=== PATIENT | female | born 1930 | race Caucasian/White ===

== ENCOUNTER 2017-10-31 20:10 | Emergency (ER) | payer MEDICARE, BC ==
[~2017-10-31] VITALS: Ht 149.9 cm; Wt 46.3 kg
[~2017-10-31 20:10] MED LIST: ADVA250A INH; ASPI325T PO; B-12500T3 PO; FLON0.053; KLOR20TA6 PO; LASI20TA PO; LEVO.1 PO; MAGN400T20 PO; SPIR25 PO; SPIRCAP INH; TAMO20TA4 PO; VALA500 PO; Z.0.OXYGEN INH; ZOCO40TA PO
[2017-10-31 20:14] VITALS: BP 113/57; PULSE 97; RESP 16; TEMP 98; O2SAT 93
--- NOTE | 2017-10-31 20:33 | PD ---
HPI Chief Complaint: Fall Time Seen by Provider: 20:27 Travel History International Travel<30 days: No Contact w/Intl Traveler<30days: No Traveled to known affect area: No History of Present Illness HPI The patient was seen and examined in the presence of the nurse. This patient came for evaluation of injuries suffered in a fall. Duration 3 hours. She lost her balance and fell onto her right side. She struck her right elbow primarily and also grazed her right hip. She does take a daily aspirin. She bruises very easily. She has been ambulatory since the fall. She does not have any hip pain. The severity of her elbow pain is mild but she had severe bruising and swelling there. No alleviating factors. No exacerbating factors. PFSH Past Medical History Asthma: No Blood Disorders: No Heart Rhythm Problems: Yes (ATRIAL FIBRILLATION) Cancer: Yes (RIGHT BREAST) Cardiovascular Problems: No Chemotherapy: No COPD: Yes Diabetes: No Endocrine: No Genitourinary: Yes (FREQUENCY/ [employer].) Hepatitis: No Hiatal Hernia: No Hypertension: Yes Immune Disorder: No Musculoskeletal: No Neurologic: No Psychiatric: No Reproductive: No Respiratory: Yes (COPD) Immunizations Current: Yes Radiation Therapy: No Sleep Apnea: No Thyroid Disease: Yes ?: Not Past Surgical History Abdominal Surgery: Yes (APPENDECTOMY) AICD: No Appendectomy: Yes Arteriovenous Shunt: No Cardiac Surgery: No Ear Surgery: No Endocrine Surgery: No Eye Surgery: No Genitourinary Surgery: No Gynecologic Surgery: No Insulin Pump: No Joint Replacement: No Oral Surgery: No Pacemaker: No Thoracic Surgery: Yes (right breast lumpectomy) Social History Alcohol Use: No Tobacco Use: Yes (CIGARETTE 1/2 PACK DAILY) Substance Use: No Allergies-Medications (Allergen,Severity, Reaction): Coded Allergies: No Known Allergies (Verified Adverse Reaction, Unknown, 10/31/17) Reported Meds & Prescriptions Reported Meds & Active Scripts Active Reported Preservision Areds (Multiple Vitamins W/ Minerals) 1 Tab 2 Tab PO DAILY Furosemide 20 Mg Tab 20 Mg PO MOWEDFRI Magnesium Oxide 400 Mg Tab 400 Mg PO DAILY Vitamin B-12 (Cyanocobalamin) 500 Mcg Tab 500 Mcg PO DAILY Synthroid (Levothyroxine Sodium) 100 Mcg Tab 100 Mcg PO DAILY Valtrex (Valacyclovir HCl) 500 Mg Tab 500 Mg PO DAILY Aspirin 325 Mg Tab 325 Mg PO DAILY Potassium Chloride ER (Potassium Chloride) 20 Meq Tab 20 Meq PO TID Spiriva Handihaler (Tiotropium Inh) 18 Mcg Cap 18 Mcg INH DAILY 1 capsule = 18 mcg Simvastatin 40 Mg Tab 40 Mg PO HS Spironolactone 25 Mg Tab 25 Mg PO DAILY Advair Diskus Inh (Fluticasone-Salmeterol Inh) 250-50 Mcg/Blist Aer 1 Puff INH BID Rinse mouth after use. Fluticasone Nasal [place] 50 Mcg/Act Naspr 100 Mcg EACH NARE DAILY 50 mcg/spray Review of Systems General / Constitutional: No: Fever Eyes: No: Visual changes HENT: No: Headaches Cardiovascular: No: Chest Pain or Discomfort Respiratory: No: Shortness of Breath Gastrointestinal: No: Abdominal Pain Genitourinary: No: Dysuria Musculoskeletal: Positive: Arthralgias, Edema, Pain Skin: No Rash Neurologic: No: Weakness Psychiatric: No: Depression Endocrine: No: Polydipsia Hematologic/Lymphatic: No: Easy Bruising Physical Exam Narrative GENERAL: Thin elderly there is ecchymosis over the greater trochanter without tenderness and good range of motion of the right hip. There is well-developed patient in no apparent distress. SKIN: Focused skin assessment reveals no rash and nodules. Skin is Warm and dry. HEAD: Atraumatic. Normocephalic. EYES: Pupils equal and round. No scleral icterus. No injection or drainage. ENT: No nasal bleeding or discharge. Mucous membranes pink and moist. NECK: Trachea midline. No JVD. CARDIOVASCULAR: Regular rate and rhythm. No murmur appreciated. RESPIRATORY: No accessory muscle use. Clear to auscultation. Breath sounds equal bilaterally. GASTROINTESTINAL: Abdomen soft, non-tender, nondistended. Hepatic and splenic margins not palpable. MUSCULOSKELETAL: Very prominent bruising and swelling about the right elbow. There is no specific bony tenderness. Extremities are neurovascularly intact. No clubbing. No cyanosis. No edema. NEUROLOGICAL: Awake and alert. No obvious cranial nerve deficits. Motor grossly within normal limits. Normal speech. PSYCHIATRIC: Appropriate mood and affect; insight and judgment normal. Data Data Last Documented VS Vital Signs Date Time Temp Pulse Resp B/P (MAP) Pulse Ox O2 Delivery O2 Flow Rate FiO2 10/31/17 20:35 Room Air 10/31/17 20:14 98.0 97 16 113/57 (75) 93 Orders Orders Elbow, Complete (4 Vws) (10/31/17 ) [facility] Medical Decision Making Medical Screen Exam Complete: Yes Emergency Medical Condition: Yes Medical Record Reviewed: Yes Differential Diagnosis Fracture, contusion, dislocation Narrative Course I have reviewed the patient's electronic medical record. I reviewed her right elbow x-rays which show minimally displaced radial head fracture. There is lateral soft tissue swelling Placed in a sling She has almost 0 pain She will follow-up with orthopedist, ice, elevate Diagnosis Primary Impression: Fracture of radial head, right, closed Qualified Codes: S52.124A - Nondisplaced fracture of head of right radius, initial encounter for closed fracture Additional Instructions: Wear sling and ice and elevate right elbow Follow-up with orthopedist Med/Other Pt SpecificInfo: Other Disposition: 01 DISCHARGE HOME Condition: Stable Marvin Delatorre MD Oct 31, 2017 20:33
--- NOTE | 2017-10-31 20:47 | RADRPT ---
EXAM DATE/TIME: 10/31/2017 20:32 [facility] COMPARISON: No previous studies available for comparison. INDICATIONS : Severe right elbow bruising/swelling pain post fall today. MEDICAL HISTORY : Carcinoma, breast. Chronic obstructive pulmonary disease. Hypertension. Thyroid disease. A-fib. SURGICAL HISTORY : Appendectomy. Right lumpectomy. ENCOUNTER: Initial ACUITY: 1 day PAIN SCORE: 9/10 LOCATION: Right elbow FINDINGS: Multiple view examination of the right elbow demonstrates extensive soft tissue swelling of the right arm. There is a joint effusion and minimally displaced fracture radial head. CONCLUSION: 1. Extensive soft tissue swelling. 2. Minimally displaced radial head fracture. Prem Gonzalez MD on October 31, 2017 at 20:42 Board Certified Radiologist. This report was verified electronically.
[2017-10-31] MEDS ORDERED: MAGN400T2 PO (20:55)
[2017-10-31] MEDS ORDERED: FURO20TA PO (20:55)
[2017-10-31] MEDS ORDERED: POTA-163 PO (20:55)
[2017-10-31] MEDS ORDERED: ADVA250A INH (20:55)
[2017-10-31] MEDS ORDERED: VITA500T4 PO (20:55)
[2017-10-31] MEDS ORDERED: SPIR25TA PO (20:55)
[2017-10-31] MEDS ORDERED: OCUVTAB4 PO (20:55)
[2017-10-31] MEDS ORDERED: SPIRCAP INH (20:55)
[2017-10-31] MEDS ORDERED: FLUT50SP EACH NARE (20:55)
[2017-10-31] MEDS ORDERED: VALT500T PO (20:55)
[2017-10-31] MEDS ORDERED: SIMV40TA PO (20:55)
[2017-10-31] MEDS ORDERED: ASPI-183 PO (20:55)
[2017-10-31] MEDS ORDERED: LEVO.1 PO (20:55)
== END 2017-10-31 21:46 | disposition home or self-care (01) ==
LOC: PHED 20:10
DX: S52.124A Nondisplaced fracture of head of right radius, initial encounter for closed fracture (principal); W18.30XA Fall on same level, unspecified, initial encounter; I48.91 Unspecified atrial fibrillation; J44.9 Chronic obstructive pulmonary disease, unspecified; I10 Essential (primary) hypertension; E07.9 Disorder of thyroid, unspecified; F17.210 Nicotine dependence, cigarettes, uncomplicated; Z79.82 Long term (current) use of aspirin
CPT/HCPCS: 73080; 99283

== ENCOUNTER 2017-11-15 10:23 | Emergency (ER) | payer MEDICARE, BC ==
[~2017-11-15] VITALS: Ht 149.9 cm; Wt 49.0 kg
[~2017-11-15 10:23] MED LIST changes: +ASPI-183 PO; -ASPI325T PO; -B-12500T3 PO; -FLON0.053; +FLUT50SP EACH NARE; +FURO20TA PO; -KLOR20TA6 PO; -LASI20TA PO; +MAGN400T2 PO; -MAGN400T20 PO; +OCUVTAB4 PO; +POTA-163 PO; +SIMV40TA PO; -SPIR25 PO; +SPIR25TA PO; -TAMO20TA4 PO; -VALA500 PO; +VALT500T PO; +VITA500T4 PO; -Z.0.OXYGEN INH; -ZOCO40TA PO
[2017-11-15 10:26] VITALS: BP 112/54; PULSE 95; RESP 16; TEMP 99; O2SAT 94
[2017-11-15] MEDS ORDERED: CYAN100017 PO (10:44)
--- NOTE | 2017-11-15 11:08 | PD ---
HPI Chief Complaint: Pain: Acute or Chronic Time Seen by Provider: 10:45 Travel History International Travel<30 days: No Contact w/Intl Traveler<30days: No Traveled to known affect area: No History of Present Illness HPI This is an 87-year-old with right rib pain for several weeks after she sustained a fall from a standing position. She was evaluated after the fall in the ER and diagnosed with a small radial head fracture. She did not have a chest x-ray done at that visit. She reports the pain has persisted since the fall. Does not endorse worsening pain. No shortness of breath. No fever chills. No cough. Pain is localized to the right anterior/lateral ribs. Reproducible to palpation of the ribs and deep inspiration. Symptom severity is mild to moderate. Pain improves with OTC Tylenol. Denies any other symptoms. 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.) Hepatitis: No Hiatal Hernia: No Hypertension: Yes Immune Disorder: No Musculoskeletal: No Neurologic: No Psychiatric: No Reproductive: No Respiratory: Yes (COPD) Immunizations Current: Yes Radiation Therapy: Yes (FINISHED 01/13/11) Sleep Apnea: No Thyroid Disease: Yes Tetanus Vaccination: > 5 Years Influenza Vaccination: Yes ?: Not Past Surgical History Abdominal Surgery: Yes (APPENDECTOMY) AICD: No Appendectomy: Yes Arteriovenous Shunt: No Cardiac Surgery: No Ear Surgery: No Endocrine Surgery: No Eye Surgery: No Genitourinary Surgery: No Gynecologic Surgery: No Insulin Pump: No Joint Replacement: No Oral Surgery: No Pacemaker: No Thoracic Surgery: Yes (right breast lumpectomy, LUNG BIOPSY) Other Surgery: Yes Social History Alcohol Use: No Tobacco Use: No Substance Use: No Allergies-Medications (Allergen,Severity, Reaction): Coded Allergies: No Known Allergies (Verified Adverse Reaction, Unknown, 11/15/17) Reported Meds & Prescriptions Reported Meds & Active Scripts Active Reported Vitamin B-12 (Cyanocobalamin (Vitamin B-12)) 1,000 Mcg Capsule 500 Mcg PO DAILY Preservision Areds (Multiple Vitamins W/ Minerals) 1 Tab 2 Tab PO DAILY Furosemide 20 Mg Tab 20 Mg PO MOWEDFRI Magnesium Oxide 400 Mg Tab 400 Mg PO DAILY Vitamin B-12 (Cyanocobalamin) 500 Mcg Tab 500 Mcg PO DAILY Synthroid (Levothyroxine Sodium) 100 Mcg Tab 100 Mcg PO DAILY Valtrex (Valacyclovir HCl) 500 Mg Tab 500 Mg PO DAILY Aspirin 325 Mg Tab 325 Mg PO DAILY Potassium Chloride ER (Potassium Chloride) 20 Meq Tab 20 Meq PO TID Spiriva Handihaler (Tiotropium Inh) 18 Mcg Cap 18 Mcg INH DAILY 1 capsule = 18 mcg Simvastatin 40 Mg Tab 40 Mg PO HS Spironolactone 25 Mg Tab 25 Mg PO DAILY Advair Diskus Inh (Fluticasone-Salmeterol Inh) 250-50 Mcg/Blist Aer 1 Puff INH BID Rinse mouth after use. Fluticasone Nasal [place] 50 Mcg/Act Naspr 100 Mcg EACH NARE DAILY 50 mcg/spray Review of Systems Except as stated in HPI: all other systems reviewed are Neg General / Constitutional: No: Fever Cardiovascular: No: Chest Pain or Discomfort Respiratory: No: Shortness of Breath Physical Exam Narrative GENERAL: Alert and well-appearing 87-year-old female SKIN: Warm and dry. HEAD: Normocephalic. Atraumatic EYES: No scleral icterus. No injection or drainage. NECK: Supple, trachea midline. No midline cervical spine tenderness CARDIOVASCULAR: Regular rate and rhythm no murmur appreciated. Heart rate 82. + Tenderness to the right anterior/lateral rib cage. No crepitus or palpable fracture. RESPIRATORY: Breath sounds equal bilaterally. No accessory muscle use. Even and equal chest rise. GASTROINTESTINAL: Abdomen soft, non-tender, nondistended. MUSCULOSKELETAL: No cyanosis, or edema. Large resolving area of ecchymosis/ hematoma to the right upper extremity. Freely moving the right upper extremity. No bony tenderness. Palpable distal pulses. BACK: Nontender without obvious deformity. No CVA tenderness. Data Data Last Documented VS Vital Signs Date Time Temp Pulse Resp B/P (MAP) Pulse Ox O2 Delivery O2 Flow Rate FiO2 11/15/17 10:26 99.0 95 16 112/54 (73) 94 Orders Orders Ribs, Uni (W/Exp Cxr-Min 3vw) (11/15/17 ) [facility] Medical Decision Making Medical Screen Exam Complete: Yes Emergency Medical Condition: Yes Differential Diagnosis Rib fracture, rib contusion, pneumothorax Narrative Course 87-year-old female with right rib pain after fall several weeks ago. She is well-appearing. No respiratory distress. Lung sounds present bilaterally. X- ray shows no definitive fracture, however consolidation in the right lower lobe suggestive of pneumonia. Patient is nontoxic appearing. She denies fever chills. She reports feeling generally well. Clinically she looks good. Pulse ox is 94% on room air this is actually improved from her prior visits which revealed pulse ox routinely 92%. She will be prescribed antibiotics and bronchodilator instructed to follow-up with her primary doctor. Diagnosis Primary Impression: Pneumonia Qualified Codes: J18.9 - Pneumonia, unspecified organism Referrals: Primary Care Physician Additional Instructions: Medication as directed. Follow-up with your primary doctor. Return if you have new or worsening symptoms Scripts Albuterol 18 GM Inh (Ventolin Hfa 18 GM Inh) 90 Mcg/Act Aer 2 PUFF INH Q4-6H Y for SHORTNESS OF BREATH, #1 INHALER 0 Refills Prov: Mignon Giron 11/15/17 Levofloxacin (Levaquin) 750 Mg Tablet 750 MG PO DAILY for Infection for 5 Days, #5 TAB 0 Refills Prov: Mignon Giron 11/15/17 Disposition: 01 DISCHARGE HOME Condition: Stable Mignon Giron November 15, 2017 11:08
--- NOTE | 2017-11-15 11:37 | RADRPT ---
EXAM DATE/TIME: 11/15/2017 11:00 [facility] COMPARISON: No previous studies available for comparison. INDICATIONS : Fall, right lateral lower rib pain. MEDICAL HISTORY : Carcinoma, breast. Chronic obstructive pulmonary disease. Hypertension.Thyroid disease. A-fib. SURGICAL HISTORY : Appendectomy. Right lumpectomy. ENCOUNTER: Initial ACUITY: 2 weeks PAIN SCORE: 10/10 LOCATION: Right lateral lower ribs FINDINGS: Multiple views of the right ribs were performed. There is no evidence of displaced fracture. No martin tructive lesions or areas of periosteal thickening are seen. Expiratory view of the chest is negativ e for pneumothorax. The mediastinal structures are midline. No definite pleural effusions. There is however a patchy area of parenchymal consolidation involving the right lower lung. CONCLUSION: 1. No definite rib fractures. 2. Patchy infiltrate in the right lower lung suggestive of pneumonia. Juan Hermosillo MD on November 15, 2017 at 11:33 Board Certified Radiologist. This report was verified electronically.
[2017-11-15] MEDS ORDERED: LEVA750T9 PO (11:51)
[2017-11-15] MEDS ORDERED: VENTAER INH (11:51)
[2017-11-15 11:53] VITALS: PULSE 82
== END 2017-11-15 12:03 | disposition home or self-care (01) ==
LOC: PHEFT 10:23
DX: J18.9 Pneumonia, unspecified organism (principal); J44.0 Chronic obstructive pulmonary disease with (acute) lower respiratory infection; I48.91 Unspecified atrial fibrillation; E78.00 Pure hypercholesterolemia, unspecified; E07.9 Disorder of thyroid, unspecified; I10 Essential (primary) hypertension; Z85.3 Personal history of malignant neoplasm of breast
CPT/HCPCS: 71101; 99283